=== PATIENT | female | born 1940 | race Caucasian/White ===

== ENCOUNTER 2017-04-23 13:51 | Emergency (ER) | payer MEDICARE, BC ==
--- NOTE | 2017-04-23 15:21 | CT REPORT ---
HISTORY: Abdominal wall injury. COMPARISON: None. TECHNIQUE: 5 mm axial images of the abdomen and pelvis without oral or IV contrast material. This examination wa s performed using automated exposure control, adjustment of MA or KV according to patient size, and/o r use of iterative reconstruction technique. FINDINGS: Mild atelectasis at the lung bases. Please note that solid organ injury cannot be excluded on a nonenhanced examination. Normal nonenhanced appearance of the liver, spleen, pancreas, gallbladder, adrenal glands, and kidney s. Appendix normal. No free fluid in the abdomen or pelvis. 4 x 2.5 x 2.7 cm fluid collection within the subcutaneous tissues superficial to the anterior abdomin al wall just to the left of midline probably representing hematoma. IMPRESSION: 4 cm subcutaneous hematoma superficial soft tissues superficial to the anterior abdominal wall just t o the left midline. Final Electronic Signature: This report was electronically signed by Jin Corbin MD, FACR on 04/23/2017 3:18 PM. lorne /
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
== END 2017-04-23 15:49 | disposition home or self-care (01) ==
LOC: ER 13:51
DX: R10.9 Unspecified abdominal pain (principal); R22.2 Localized swelling, mass and lump, trunk; S30.1XXD Contusion of abdominal wall, subsequent encounter
CPT/HCPCS: 74176; 99283; 99284